=== PATIENT | male | born 1970 | race Hispanic/Latino ===

== ENCOUNTER 2018-09-04 13:52 | Inpatient (IN) | payer MEDICAID ==
[2018-09-04] MEDS ORDERED: Sodium Chloride 0.9% 1,000 ML IV STA (14:17)
[2018-09-04 14:31] LABS: BASO # 0.1 K/uL (0.0-0.2); EOS # 0.1 K/uL (0.0-0.7); EOS % 0.9 % (0.0-4.0); HEMOGLOBIN 14.4 g/dL (12.0-18.0); LYMPH # 2.5 K/uL (1.0-4.3); LYMPH % 28.7 % (20.0-40.0); MEAN CELL VOLUME 99.5 fl (80.0-94.0); MEAN CORPUSCULAR HEMOGLOBIN 33.3 pg (27.0-31.0); MEAN CORPUSCULAR HGB CONC 33.5 g/dL (33.0-37.0); MEAN PLATELET VOLUME 8.5 fl (7.2-11.7); MONO # 0.9 K/uL (0.0-0.8); NEUT # 5.2 K/uL (1.8-7.0); NEUT % 59.4 % (50.0-75.0); NRBC % 0.1 % (0.0-0.0); RBC 4.33 Mil/uL (4.40-5.90); RED CELL DISTRIBUTION WIDTH 15.2 % (11.5-14.5); WHITE BLOOD COUNT 8.7 K/uL (4.8-10.8)
[2018-09-04 14:41] LABS: ALB/GLOB RATIO 1.7 (1.0-2.1); ALBUMIN 5.1 g/dL (3.5-5.0); ALT/SGPT 252 U/L (21-72); AST/SGOT 299 U/L (17-59); BLOOD UREA NITROGEN 14 mg/dl (9-20); CALCIUM 9.7 mg/dL (8.4-10.2); GFR NON-AFRICAN AMERICAN > 60
--- NOTE | 2018-09-04 14:41 | ED PDOC ---
HPI: Seizure Time Seen by Provider: 09/04/18 14:08 Chief Complaint (Nursing): Seizure Chief Complaint (Provider): Seizure History Per: Patient History/Exam Limitations: no limitations Length Of Seizures (Duration): Minutes (3) Additional Complaint(s): 48 y/o male with PMHx of TBI and seizure disorder was brought to the ED via ambulance after witnessing tonic-clonic seizure that lasted for 3 minutes at counselors office. Patient did not fall but eased to the ground and he does not have recollection of the seizure. He has a history of traumatic brain injury with subsequent seizure disorder and takes Valproic acid. Patient also has a history of alcohol abuse with seizure withdrawal as well. Otherwise, patient denies any other symptoms. PMD: none provided Past Medical History Reviewed: Historical Data, Nursing Documentation, Vital Signs Vital Signs: Last Vital Signs Temp 98.6 F 09/04/18 13:56 Pulse 154 H 09/04/18 13:56 Resp 20 09/04/18 13:56 BP 166/99 H 09/04/18 13:56 Pulse Ox 97 09/04/18 13:56 - Medical History PMH: HTN, Seizures Other PMH: TBI - Family History Family History: States: Unknown Family Hx - Social History Current smoker - smoking cessation education provided: Yes Alcohol: Other (daily) Drugs: Denies - Home Medications Home Medications: Ambulatory Orders Medication Instructions Recorded Divalproex [Depakote DR] 500 mg PO BID 09/04/18 Fluoxetine HCl 40 mg PO DAILY 09/04/18 QUEtiapine [SEROquel] 25 mg PO BID 09/04/18 RX: Enalapril Maleate [Vasotec] 10 mg PO DAILY 09/04/18 RX: Omeprazole 40 mg PO DAILY 09/04/18 - Allergies Allergies/Adverse Reactions: Allergies Allergy/AdvReac Type Severity Reaction Status Date / Time No Known Allergies Allergy Verified 09/04/18 13:55 Review of Systems ROS Statement: Except As Marked, All Systems Reviewed And Found Negative Constitutional: Negative for: Fever, Chills Respiratory: Negative for: Cough Neurological: Positive for: Seizures. Negative for: Weakness, Numbness Psych: Negative for: Suicidal ideation (homicidal ideation) Physical Exam - Reviewed Nursing Documentation Reviewed: Yes Vital Signs Reviewed: Yes - Physical Exam Appears: Positive for: Non-toxic, No Acute Distress Head Exam: Positive for: ATRAUMATIC Skin: Positive for: Normal Color, Warm, Dry. Negative for: Rash Eye Exam: Positive for: Normal appearance, EOMI, PERRL ENT: Positive for: Other (Ant tongue bitten) Neck: Positive for: Normal, Painless ROM, Supple. Negative for: Decreased ROM Cardiovascular/Chest: Positive for: Regular Rate, Rhythm Respiratory: Positive for: Normal Breath Sounds. Negative for: Decreased Breath Sounds, Wheezing, Respiratory Distress Gastrointestinal/Abdominal: Positive for: Normal Exam, Soft. Negative for: Tenderness Back: Positive for: Normal Inspection Extremity: Positive for: Normal ROM. Negative for: Tenderness, Pedal Edema, Deformity Neurologic/Psych: Positive for: Alert, languages and literature instructor II-XII (intact), Oriented (x3), Gait (steady). Negative for: Motor/Sensory Deficits, Mood/Affect, Aphasia, Facial Droop - Laboratory Results Result Diagrams: 09/04/18 14:27 09/04/18 14:27 - ECG O2 Sat by Pulse Oximetry: 97 (RA) Pulse Ox Interpretation: Normal Medical Decision Making Medical Decision Making: Time: 1417 Initial impression: generalized seizure due to alcohol withdrawal and heart rate of 140bpm. Cannot rule out bleed versus seizure disorder secondary to traumatic brain injury. Will obtain CT of head, lab work and treat with Ativan Plan: Head w/o contrast CT EKG Alcohol serum CMP Drug screen, urine Valproic Acid ED urine dipstick CBC w/ differential Chest two views Ativan 1mg Normal saline 150mls/hr Reevaluation Patient evaluated for seizure which lasted for 2 minutes and aborted by 1mg of Ativan. Provider will obtain head CT and admit for alcohol and seizure. Time: [address] Georges for alcohol withdrawal. Scribe Attestation: Documented by Mauli Maniar, acting as a scribe for Chauncey Stallworth MD Provider Scribe Attestation: All medical record entries made by the Scribe were at my direction and personally dictated by me. I have reviewed the chart and agree that the record accurately reflects my personal performance of the history, physical exam, medical decision making, and the department course for this patient. I have also personally directed, reviewed, and agree with the discharge instructions and disposition. Disposition - Clinical Impression Clinical Impression: Alcohol withdrawal seizure - Patient ED Disposition Is Patient to be Admitted: Yes - Disposition Disposition Time: 15:00 Condition: FAIR - Pt Status Changed To: Hospital Disposition Of: Inpatient - Admit Certification Admit to Inpatient:: After my assessment, the patient will require hospitalization for at least two midnights. This is because of the severity of symptoms shown, intensity of services needed, and/or the medical risk in this patient being treated as an outpatient. - POA Present On Arrival: None
--- NOTE | 2018-09-04 16:37 | RAD ---
Date of service: 09/04/2018 HISTORY: Seizure COMPARISON: No prior. TECHNIQUE: Chest PA and lateral FINDINGS: LUNGS: No active pulmonary disease. PLEURA: No significant pleural effusion identified. No pneumothorax apparent. CARDIOVASCULAR: No aortic atherosclerotic calcification present. Normal cardiac size. No pulmonary vascular congestion. OSSEOUS STRUCTURES: No significant abnormalities. VISUALIZED UPPER ABDOMEN: Normal. OTHER FINDINGS: None. IMPRESSION: No active disease.
[2018-09-04 16:42] LABS: BARBITURATES, UR NEGATIVE (NEGATIVE); BENZODIAZEPINES, UR NEGATIVE (NEGATIVE); OPIATES, UR NEGATIVE (NEGATIVE); PHENCYCLIDINE, UR NEGATIVE (NEGATIVE)
--- NOTE | 2018-09-04 17:13 | CT ---
Date of service: 09/04/2018 PROCEDURE: CT HEAD WITHOUT CONTRAST. HISTORY: r/o bleed COMPARISON: None available. TECHNIQUE: Axial computed tomography images were obtained through the head/brain without intravenous contrast. Radiation dose: Total exam DLP = 992.68 mGy-cm. This CT exam was performed using one or more of the following dose reduction techniques: Automated exposure control, adjustment of the mA and/or kV according to patient size, and/or use of iterative reconstruction technique. FINDINGS: HEMORRHAGE: No intracranial hemorrhage. BRAIN: Probable posttraumatic encephalomalacia is appreciate the right greater than left frontal lobes and right greater than left temporal lobes with potential contra coup contusion related encephalomalacia at the left occipital lobe. Other etiologies are possible but no definite acute intracranial findings are identified at this time. No mass effect. Midline brain parenchyma is unremarkable and there is no suspicious extra-axial collection appreciated. VENTRICLES: Unremarkable. No hydrocephalus. CALVARIUM: Unremarkable. PARANASAL SINUSES: Unremarkable as visualized. No significant inflammatory changes. MASTOID AIR CELLS: Unremarkable as visualized. No inflammatory changes. OTHER FINDINGS: None. IMPRESSION: Cystic encephalomalacia seen appreciated at the right greater than left frontal and temporal lobes as well as left occipital lobe posteriorly. These may reflect posttraumatic etiology. Clinically correlate. No definite acute intracranial findings by standard CT criteria. Follow-up CT or MRI is available as clinically warranted.
--- NOTE | 2018-09-04 20:56 | CARD ---
APPROVED REPORT Date of service: 09/04/2018 EKG Measurement Heart [id number] <Conclusion> Sinus tachycardia Otherwise normal ECG
[2018-09-04] MEDS ORDERED: Influenza Vaccine (5 YR UP)/PF 60 MCG/0.5 ML SYR IM ONE (22:22)
[2018-09-04] MEDS ORDERED: Pneumococcal 23-Valent Vaccine IM ONE (22:22)
[2018-09-04] MEDS: Sodium Chloride 0.9% 1,000 ML IV SCH (23:20)
[2018-09-05] MEDS: Divalproex 500 mg DR(BID formulation) PO SCH ×2 (08:24→16:51)
[2018-09-05] MEDS: Pantoprazole 40 mg EC Tab PO SCH (08:24)
[2018-09-05] MEDS: Sodium Chloride 0.9% 1,000 ML IV SCH (08:33)
--- NOTE | 2018-09-06 00:52 | CP.PCM.HP ---
History of Present Illness - History of Present Illness History of Present Illness: This is a 48 y/o male who was brought to Er after a generalized tonic clonic seizure witnessed by his Psychotherapist He has a long hx of alcoholism and depression which has gotten worst after a traumatic brain injury. He was maintained on Keppra but apparently he has been poorly compliant and continues to drink heavy liquor daily. He also smokes he lives alone in [place] He has been and has moved recently from [place] to [place]. He currently is not working. 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 He takes antidepressant but had not seen his Psychiatrist for a while. His last drink was a day before Er visit. His Keppra levels at the ER was very low. Present on Admission - Present on Admission Any Indicators Present on Admission: No History of DVT/PE: No History of Uncontrolled Diabetes: No Urinary Catheter: No Decubitus Ulcer Present: No Review of Systems - Psychiatric Psychiatric: Abnormal Sleep Pattern, Change in Appetite, Depression, Hopelessness Past Patient History - Past Medical History & Family History Past Medical History?: Yes - Past Social History Alcohol: Other (daily) Drugs: Denies - CARDIAC Hx Hypertension: Yes - PULMONARY Hx Respiratory Disorders: No - NEUROLOGICAL Hx Seizures: Yes - HEENT Hx HEENT Problems: No - RENAL Hx Chronic Kidney Disease: No - ENDOCRINE/METABOLIC Hx Endocrine Disorders: No - HEMATOLOGICAL/ONCOLOGICAL Hx Blood Disorders: No - INTEGUMENTARY Hx Dermatological Problems: No - MUSCULOSKELETAL/RHEUMATOLOGICAL Hx Musculoskeletal Disorders: No Hx Falls: No - GASTROINTESTINAL Hx Gastrointestinal Disorders: No - GENITOURINARY/GYNECOLOGICAL Hx Genitourinary Disorders: No - PSYCHIATRIC Hx Psychophysiologic Disorder: No Hx Substance Use: No - SURGICAL HISTORY Hx Surgeries: No - ANESTHESIA Hx Anesthesia: No Hx Anesthesia Reactions: No Hx Malignant Hyperthermia: No Has any member of the family had a problem w/ anesthesia?: No Meds Allergies/Adverse Reactions: Allergies Allergy/AdvReac Type Severity Reaction Status Date / Time No Known Allergies Allergy Verified 09/04/18 13:55 Physical Exam - Head Exam Head Exam: NORMAL INSPECTION - Eye Exam Eye Exam: Normal appearance - ENT Exam ENT Exam: Mucous Membranes Moist - Respiratory Exam Respiratory Exam: Clear to Auscultation Bilateral - GI/Abdominal Exam GI & Abdominal Exam: Normal Bowel Sounds - Neurological Exam Neurological exam: CN II-XII Intact, Oriented x3 - Psychiatric Exam Psychiatric exam: Depressed, Flat Affect - Skin Skin Exam: Dry Results - Vital Signs Recent Vital Signs: Last Vital Signs Temp 99.0 F 09/05/18 20:37 Pulse 82 09/05/18 20:37 Resp 20 09/05/18 20:37 BP 119/77 09/05/18 20:37 Pulse Ox 99 09/05/18 20:37 - Labs Result Diagrams: 09/04/18 14:27 09/04/18 14:27 Assessment & Plan (1) Alcohol withdrawal seizure Status: Acute (2) Generalized seizure disorder Status: Acute (3) Depression Status: Acute (4) Alcoholism /alcohol abuse Status: Acute (5) Tobacco abuse Status: Acute - Assessment and Plan (Free Text) Plan: HyDrate keppra Neurio eval Psych eval arrange for homemaker services DT prevention nicotine patch
[2018-09-06 05:32] LABS: MEAN CELL VOLUME 99.3 fl (80.0-94.0); MEAN CORPUSCULAR HEMOGLOBIN 33.6 pg (27.0-31.0); MEAN CORPUSCULAR HGB CONC 33.9 g/dL (33.0-37.0); RBC 3.86 Mil/uL (4.40-5.90); RED CELL DISTRIBUTION WIDTH 14.7 % (11.5-14.5); WHITE BLOOD COUNT 7.9 K/uL (4.8-10.8)
[2018-09-06 06:41] LABS: ALB/GLOB RATIO 1.4 (1.0-2.1); ALBUMIN 3.8 g/dL (3.5-5.0); ALT/SGPT 196 U/L (21-72); AST/SGOT 259 U/L (17-59); BLOOD UREA NITROGEN 16 mg/dl (9-20); CALCIUM 9.4 mg/dL (8.4-10.2); GFR NON-AFRICAN AMERICAN > 60
[2018-09-06] MEDS ORDERED: Potassium Chloride 20 mEq ER Tab PO ONE (08:17)
[2018-09-06 08:18] VITALS: BP 135/92; PULSE 72; RESP 20; TEMP 98.2; O2SAT 100
[2018-09-06] MEDS: Divalproex 500 mg DR(BID formulation) PO SCH (08:24)
[2018-09-06] MEDS: Pantoprazole 40 mg EC Tab PO SCH (08:26)
--- NOTE | 2018-09-06 08:59 | CP.PCM.CON ---
History of Present Illness - History of Present Illness History of Present Illness: Psychiatry consult note CC: "I had a seizure." HPI: 48 yo male admitted s/p alcohol withdrawal seizure witnessed by his psychotherapist. Patient reports that he drinks 1 liter of liquor a day (vodka, gin or whiskey). He reports chronic depression, but denies acute worsening of depression or AH/VH/SI/HI/paranoia/delusions. Patient reports that he has not seen his psychiatrist for several months and has a history of poor compliance with medications. Psychoeducation provided to the patient and his mother on the dangers of alcohol abuse, the dangers of using alcohol while taking Ativan and the importance of compliance with treatment and medications. Field Research Associate recommended that the patient start to follow-up again with a psychiatrist and that his medications will not be modified at this time due to h/o poor compliance with me dications. Psychoeducation provided that alcohol abuse also destabilizes mood and worsens depression. PMHx: Seizure Disorder; HTN PPHx: +Alcohol Abuse; +Outpatient therapy; poor compliance with psychiatric appointments ALL: NKDA SHx: Lives alone in [place], , unemployed, +cig use, + alcohol abuse, denies drug use. 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 Major D epressive Disorder -Treatment of alcohol withdrawal as per [facility] protocol -Continue current psychiatric medications; recommend patient follow-up with an outpatient psychiatrist upon discharge -Psychoeducation provided to the patient and his mother Past Patient History - Past Medical History & Family History Past Medical History?: Yes - Past Social History Alcohol: Other (daily) Drugs: Denies - CARDIAC Hx Hypertension: Yes - PULMONARY Hx Respiratory Disorders: No - NEUROLOGICAL Hx Seizures: Yes - HEENT Hx HEENT Problems: No - RENAL Hx Chronic Kidney Disease: No - ENDOCRINE/METABOLIC Hx Endocrine Disorders: No - HEMATOLOGICAL/ONCOLOGICAL Hx Blood Disorders: No - INTEGUMENTARY Hx Dermatological Problems: No - MUSCULOSKELETAL/RHEUMATOLOGICAL Hx Musculoskeletal Disorders: No Hx Falls: No - GASTROINTESTINAL Hx Gastrointestinal Disorders: No - GENITOURINARY/GYNECOLOGICAL Hx Genitourinary Disorders: No - PSYCHIATRIC Hx Psychophysiologic Disorder: No Hx Substance Use: No - SURGICAL HISTORY Hx Surgeries: No - ANESTHESIA Hx Anesthesia: No Hx Anesthesia Reactions: No Hx Malignant Hyperthermia: No Has any member of the family had a problem w/ anesthesia?: No Meds Allergies/Adverse Reactions: Allergies Allergy/AdvReac Type Severity Reaction Status Date / Time No Known Allergies Allergy Verified 09/04/18 13:55 - Medications Medications: Current Medications Divalproex Sodium (Depakote Dr(*Bid*)) 500 mg PO BID [facility] Last Admin: 09/06/18 08:24 Dose: 500 mg Enalapril Maleate (Vasotec) 10 mg PO DAILY [facility] Last Admin: 09/06/18 08:28 Dose: 10 mg Fluoxetine HCl (Prozac) 40 mg PO DAILY [facility] Last Admin: 09/06/18 08:27 Dose: 40 mg Lorazepam (Ativan) 0.5 mg PO Q8 [facility] Last Admin: 09/06/18 00:24 Dose: 0.5 mg Nicotine (Nicoderm Cq) 1 patch TD DAILY [facility] Last Admin: 09/06/18 08:25 Dose: 1 patch Pantoprazole Sodium (Protonix Ec Tab) 40 mg PO DAILY [facility] Last Admin: 09/06/18 08:26 Dose: 40 mg Potassium Chloride (K-Dur 20 Meq Er Tab) 40 meq PO ONCE ONE Stop: 09/06/18 08:18 Quetiapine Fumarate (Seroquel) 25 mg PO BID [facility] Last Admin: 09/06/18 08:29 Dose: 25 mg Results - Vital Signs Recent Vital Signs: Last Vital Signs Temp 98.2 F 09/06/18 08:17 Pulse 72 09/06/18 08:17 Resp 20 09/06/18 08:17 BP 135/92 H 09/06/18 08:17 Pulse Ox 100 09/06/18 08:17 - Labs Result Diagrams: 09/06/18 04:30 09/06/18 04:30 Labs: Laboratory Results - last 24 hr 09/06/18 09/06/18 09/06/18 04:30 04:30 04:30 WBC 7.9 RBC 3.86 L Hgb 13.0 Hct 38.4 MCV 99.3 H MCH 33.6 H MCHC 33.9 RDW 14.7 H Plt Count 140 Sodium 137 Potassium 3.1 L Chloride 102 Carbon Dioxide 26 Anion Gap 12 BUN 16 Creatinine 1.1 Est GFR ( Amer) > 60 Est GFR (Non-Af Amer) > 60 Random Glucose 99 Calcium 9.4 Total Bilirubin 1.1 AST 259 H ALT 196 H D Alkaline Phosphatase 59 Total Protein 6.5 Albumin 3.8 Globulin 2.7 Albumin/Globulin Ratio 1.4 Valproic Acid 37.9 L
== END 2018-09-06 12:30 | disposition home or self-care (01) | DRG 750 ==
LOC: H.ER 13:52 → H.ERHOLD 14:54 → H.TEL 20:49
PROVIDERS: ADMIT Family Medicine; ATTEND Family Medicine
PROC: HZ56ZZZ Individual Psychotherapy for Substance Abuse Treatment, Psychoeducation (ICD-10-PCS; principal; 2018-09-04)
PROC: 3E02340 Introduction of Influenza Vaccine into Muscle, Percutaneous Approach (ICD-10-PCS; 2018-09-04)
DX: F10.239 Alcohol dependence with withdrawal, unspecified (principal); G40.409 Other generalized epilepsy and epileptic syndromes, not intractable, without status epilepticus; R56.9 Unspecified convulsions; F32.9 Major depressive disorder, single episode, unspecified; Z72.0 Tobacco use; I10 Essential (primary) hypertension; Z23 Encounter for immunization; Z87.820 Personal history of traumatic brain injury